=== PATIENT | female | born 1980 | race Caucasian/White ===

== ENCOUNTER 2023-11-25 01:25 | Emergency (ER) | payer SELFPAY ==
[~2023-11-25] VITALS: Ht 154.9 cm; Wt 76.2 kg
[2023-11-25 01:32] VITALS: BP 126/90; PULSE 88; RESP 16; TEMP 96.8
[2023-11-25 03:08] VITALS: O2SAT 98
[2023-11-25] MEDS ORDERED: IBUP-2213 PO (04:02)
== END 2023-11-25 04:04 | disposition home or self-care (01) ==
LOC: MED 01:25 → EDBD 01:25 → MED 04:04
DX: L91.8 Other hypertrophic disorders of the skin (principal); H92.03 Otalgia, bilateral; Z98.890 Other specified postprocedural states
CPT/HCPCS: 99282